=== PATIENT | female | born 1955 | race Caucasian/White ===

== ENCOUNTER → 2020-07-28 10:11 | Outpatient (CLI) | payer MEDICARE, SELFPAY ==
--- NOTE | 2020-07-28 10:19 | XR_ITS ---
PROCEDURE: XR DEXA AXIAL SKELETON CLINICAL HISTORY: ASYMPTOMATIC MENOPAUSE COMPARISON: No exams were available for comparison FINDINGS: The right hip BMD is 0.633 with a T-score of -1.9. The left hip BMD is 0.574 with a T-score of -2.5. The lumbar spine BMD is 0.984 with a T-score of -0.6. IMPRESSION: This patient is considered osteoporotic according to the World Health Organization criteria. Fracture risk is high. Treatment is advised. Based on these results a follow-up exam is recommended in 1 year. Dictated by: Sudheer Gonsalez MD 07/28/2020 20:08 Sudheer Gonsalez MD in [place] 07/28/2020 20:08
--- NOTE | 2020-07-28 11:00 | MM_ITS ---
PROCEDURE: MM DIG SCREENING MAMM BI W/CAD Digital Breast Tomosynthesis Included CLINICAL INDICATION: ASYMPTOMATIC MENOPAUSE There is no personal or family history of breast cancer. COMPARISON: MG Mammo Screen Digi Bilat from 02/28/2013 MG Mammo Screen Digi Bilat from 01/20/2016 TECHNIQUE: Standard CC and MLO images and 3D Tomosynthesis was obtained. R2 CAD reviewed. FINDINGS: The fibroglandular densities are seen in the central portions of both breast. There is a mole marker on each breast. There is a well-defined nodular lesion just deep to the nipple right breast best seen on the cc projection with benign features. However it was not definitely seen on the previous mammograms. Recommend the patient return for spot compression views and ultrasound for additional evaluation. IMPRESSION: Moderate breast density with asymmetric density right breast BI-RAD Category: 0 Need Additional Imaging Evaluation FOLLOW-UP: IMM Immediate Follow-up Recommended (A letter has been sent to the patient regarding results of the study.) Dictated by: Dr. Chad Dos Santos MD 08/12/2020 12:05 Dr. Chad Dos Santos MD in [place] 08/12/2020 12:05
== END ==
PROVIDERS: PCP Internal Medicine Adolescent Medicine; Visit Provider Internal Medicine Adolescent Medicine
DX: Z12.31 Encounter for screening mammogram for malignant neoplasm of breast (principal); Z13.820 Encounter for screening for osteoporosis; Z78.0 Asymptomatic menopausal state
CPT/HCPCS: 77063; 77067; 77080

== ENCOUNTER → 2020-08-23 14:50 | Outpatient (CLI) | payer MEDICARE, SELFPAY ==
--- NOTE | 2020-08-23 14:53 | MM_ITS ---
PROCEDURE: MM DIG MAMM DX UNILAT RT CAD Digital Breast Tomosynthesis Included CLINICAL INDICATION: ABN MAMM COMPARISON: MG Mammo Screen Digi Bilat from 02/28/2013 MG Mammo Screen Digi Bilat from 01/20/2016 MG MM DIG SCREENING MAMM BI W/CAD from 07/28/2020 US US BREAST RT COMPLETE from 08/23/2020 TECHNIQUE: Standard CC and MLO images and 3D Tomosynthesis was obtained. R2 CAD reviewed. FINDINGS: Noted is a mole marker near the nipple. The previously noted nodular lesion just deep and medial nipple again seen as smooth well-defined borders. Ultrasound performed the same date shows a small well-defined hypoechoic lesion with homogeneous echogenicity at this location measuring point 8 x 0.2 by 0.6 cm and the appearance suggests a small fibroadenoma. No other abnormality is noted. IMPRESSION: Problem solving views and ultrasound suggesting a small fibroadenoma corresponding to the nodular lesion seen near the nipple BI-RAD Category: 2 Benign Finding(s) FOLLOW-UP: 1YR 1 Year Follow-up (A letter has been sent to the patient regarding results of the study.) Dictated by: Dr. Chad Dos Santos MD 09/07/2020 10:10 Dr. Chad Dos Santos MD in [place] 09/07/2020 10:10
--- NOTE | 2020-08-23 14:54 | US_ITS ---
PROCEDURE: US BREAST RT COMPLETE CLINICAL INDICATION: ABN MAMM COMPARISON: No exams were available for comparison FINDINGS: There is a well-defined hypoechoic oval nodule with homogeneous internal echoes near the nipple measuring 0.8 x 0.2 by 0.6 cm and the appearance suggests a fibroadenoma. The surrounding breast parenchyma is unremarkable. There are couple normal appearing nodes in the axilla. IMPRESSION: Benign-appearing hypoechoic lesion likely fibroadenoma corresponding to the density on the recent mammogram and recommend continued yearly mammography Dictated by: Dr. Chad Dos Santos MD 09/07/2020 10:14 Dr. Chad Dos Santos MD in [place] 09/07/2020 10:14
== END ==
PROVIDERS: PCP Internal Medicine Adolescent Medicine; Visit Provider Internal Medicine Adolescent Medicine
DX: R92.8 Other abnormal and inconclusive findings on diagnostic imaging of breast (principal)
CPT/HCPCS: 76641; 77061; 77065; G0279

== ENCOUNTER → 2020-10-19 14:52 | Outpatient (POV) | payer MEDICARE, SELFPAY | PROVIDERS: Visit Provider Dermatology | DX: Z00.00 Encounter for general adult medical examination without abnormal findings (principal) ==

== ENCOUNTER → 2020-12-01 14:01 | Outpatient (CLI) | payer MEDICARE, SELFPAY ==
[2020-12-01 14:27] LABS: Basophils % 0.6 % (0.1-2.0); Eosinophils # 0.1 K/mm3 (0.0-0.4); Eosinophils % 2.5 % (0.1-12.0); Hematocrit 34.6 % (37.0-47.0); Lymphocytes # 1.9 K/mm3 (0.7-4.5); Lymphocytes % 32.8 % (10-50); Mean Corpuscular HGB Conc 34.6 g/dL (31.8-35.4); Mean Corpuscular Hemoglobin 33.5 pg (27.0-31.2); Mean Corpuscular Volume 96.9 fl (81-99); Mean Platelet Volume 7.8 fl (7.4-10.4); Monocytes # 0.3 K/mm3 (0.1-1.0); Monocytes % 5.6 % (1.7-9.3); Neutrophils # 3.4 K/mm3 (1.8-7.8); Neutrophils % 58.6 % (37.0-80.0); Platelet Count 251 K/mm3 (142-424); Red Blood Count 3.57 M/mm3 (4.20-5.40); Red Cell Distribution Width 13.5 % (11.5-17.5); White Blood Count 5.8 K/mm3 (4.8-10.8)
[2020-12-01 14:49] LABS: Chloride 105 mmol/L (98-107)
[2020-12-01 14:50] LABS: Potassium 4.2 mmoL/L (3.5-5.1); Sodium 143 mmol/L (136-145)
[2020-12-01 14:52] LABS: Alanine Aminotransferase 15 U/L (12-78); Alkaline Phosphatase 66 U/L (38-126); Aspartate Amino Transferase 28 U/L (14-36); Bilirubin,Total 0.5 mg/dl (0.2-1.3); Blood Urea Nitrogen 14 mg/dl (7-17); Estimated Glomerular Filt Rate 84 ml/min (>60); GFR (African American) 101 ML/MIN (>60)
[2020-12-01 14:53] LABS: Albumin Level 4.7 g/dl (3.5-5.0); Anion Gap 13.2 mEq/L (5-15); Calcium 8.9 mg/dl (8.4-10.2); Carbon Dioxide 29 mmol/L (22.0-30.0); Globulin 2.4 g/dL (1.3-3.2); Glucose 101 mg/dl (74-100); Total Protein,Serum 7.1 g/dl (6.3-8.2)
== END ==
PROVIDERS: Visit Provider Dermatology
DX: L40.0 Psoriasis vulgaris (principal); Z79.899 Other long term (current) drug therapy
CPT/HCPCS: 36415; 80053; 85025

== ENCOUNTER → 2020-12-07 11:07 | Outpatient (POV) | payer MEDICARE, SELFPAY | PROVIDERS: Visit Provider Dermatology | DX: Z00.00 Encounter for general adult medical examination without abnormal findings (principal) ==

== ENCOUNTER → 2021-01-31 15:55 | Outpatient (CLI) | payer MEDICARE, SELFPAY ==
[2021-01-31 17:28] LABS: Eosinophils # 0.1 K/mm3 (0.0-0.4); Eosinophils % 2.3 % (0.1-12.0); Hemoglobin 11.2 g/dL (12.2-16.2); Lymphocytes # 1.6 K/mm3 (0.7-4.5); Lymphocytes % 37.2 % (10-50); Mean Corpuscular HGB Conc 32.9 g/dL (31.8-35.4); Mean Corpuscular Hemoglobin 32.7 pg (27.0-31.2); Mean Corpuscular Volume 99.5 fl (81-99); Mean Platelet Volume 8.4 fl (7.4-10.4); Monocytes # 0.3 K/mm3 (0.1-1.0); Monocytes % 6.4 % (1.7-9.3); Neutrophils # 2.2 K/mm3 (1.8-7.8); Neutrophils % 53.1 % (37.0-80.0); Platelet Count 205 K/mm3 (142-424); Red Blood Count 3.42 M/mm3 (4.20-5.40); Red Cell Distribution Width 13.9 % (11.5-17.5); White Blood Count 4.2 K/mm3 (4.8-10.8)
[2021-01-31 19:19] LABS: Chloride 106 mmol/L (98-107)
[2021-01-31 19:20] LABS: Potassium 4.1 mmoL/L (3.5-5.1); Sodium 140 mmol/L (136-145)
[2021-01-31 19:22] LABS: Alanine Aminotransferase 13 U/L (12-78); Albumin Level 4.6 g/dl (3.5-5.0); Alkaline Phosphatase 68 U/L (38-126); Anion Gap 11.1 mEq/L (5-15); Aspartate Amino Transferase 28 U/L (14-36); Bilirubin,Total 0.5 mg/dl (0.2-1.3); Blood Urea Nitrogen 11 mg/dl (7-17); Carbon Dioxide 27 mmol/L (22.0-30.0); Estimated Glomerular Filt Rate 100 ml/min (>60); GFR (African American) 121 ML/MIN (>60); Globulin 2.3 g/dL (1.3-3.2); Glucose 90 mg/dl (74-100); Total Protein,Serum 6.9 g/dl (6.3-8.2)
== END ==
PROVIDERS: Visit Provider Dermatology
DX: L40.0 Psoriasis vulgaris (principal); Z79.899 Other long term (current) drug therapy
CPT/HCPCS: 36415; 80053; 85025

== ENCOUNTER → 2021-02-08 13:44 | Outpatient (POV) | payer MEDICARE, SELFPAY | PROVIDERS: Visit Provider Dermatology | DX: Z00.00 Encounter for general adult medical examination without abnormal findings (principal) ==

== ENCOUNTER → 2021-04-08 11:18 | Outpatient (CLI) | payer MEDICARE, SELFPAY ==
[2021-04-08 11:48] LABS: Basophils # 0.1 K/mm3 (0-0.2); Basophils % 0.8 % (0.1-2.0); Eosinophils # 0.1 K/mm3 (0.0-0.4); Eosinophils % 1.6 % (0.1-12.0); Hematocrit 38.4 % (37.0-47.0); Lymphocytes # 1.3 K/mm3 (0.7-4.5); Lymphocytes % 22.6 % (10-50); Mean Corpuscular HGB Conc 31.3 g/dL (31.8-35.4); Mean Corpuscular Hemoglobin 32.9 pg (27.0-31.2); Mean Corpuscular Volume 105.2 fl (81-99); Mean Platelet Volume 8.6 fl (7.4-10.4); Monocytes # 0.3 K/mm3 (0.1-1.0); Platelet Count 267 K/mm3 (142-424); Red Blood Count 3.65 M/mm3 (4.20-5.40); Red Cell Distribution Width 13.6 % (11.5-17.5); White Blood Count 5.7 K/mm3 (4.8-10.8)
[2021-04-08 12:22] LABS: Chloride 104 mmol/L (98-107); Potassium 4.6 mmoL/L (3.5-5.1); Sodium 141 mmol/L (136-145)
[2021-04-08 12:24] LABS: Blood Urea Nitrogen 10 mg/dl (7-17); Estimated Glomerular Filt Rate 100 ml/min (>60); GFR (African American) 121 ML/MIN (>60)
[2021-04-08 12:25] LABS: Alanine Aminotransferase 14 U/L (12-78); Albumin Level 4.3 g/dl (3.5-5.0); Albumin/Globulin Ratio 1.7 (1.1-1.8); Alkaline Phosphatase 69 U/L (38-126); Anion Gap 12.6 mEq/L (5-15); Aspartate Amino Transferase 27 U/L (14-36); Bilirubin,Total 0.5 mg/dl (0.2-1.3); Carbon Dioxide 29 mmol/L (22.0-30.0); Globulin 2.5 g/dL (1.3-3.2); Glucose 89 mg/dl (74-100); Total Protein,Serum 6.8 g/dl (6.3-8.2)
== END ==
PROVIDERS: Visit Provider Dermatology
DX: L40.0 Psoriasis vulgaris (principal); Z79.899 Other long term (current) drug therapy
CPT/HCPCS: 36415; 80053; 85025

== ENCOUNTER → 2021-05-10 13:20 | Outpatient (POV) | payer MEDICARE, SELFPAY | PROVIDERS: Visit Provider Dermatology | DX: Z00.00 Encounter for general adult medical examination without abnormal findings (principal) ==

== ENCOUNTER → 2021-09-27 12:35 | Outpatient (CLI) | payer MEDICARE, SELFPAY ==
[2021-09-27 14:01] LABS: Basophils # 0.1 K/mm3 (0-0.2); Basophils % 1.2 % (0.1-2.0); Eosinophils # 0.1 K/mm3 (0.0-0.4); Eosinophils % 1.6 % (0.1-12.0); Hematocrit 37.2 % (37.0-47.0); Hemoglobin 12.3 g/dL (12.2-16.2); Lymphocytes # 1.2 K/mm3 (0.7-4.5); Lymphocytes % 29.8 % (10-50); Mean Corpuscular Hemoglobin 33.8 pg (27.0-31.2); Mean Corpuscular Volume 102.3 fl (81-99); Mean Platelet Volume 8.4 fl (7.4-10.4); Monocytes # 0.2 K/mm3 (0.1-1.0); Monocytes % 4.9 % (1.7-9.3); Neutrophils # 2.5 K/mm3 (1.8-7.8); Neutrophils % 62.6 % (37.0-80.0); Platelet Count 222 K/mm3 (142-424); Red Blood Count 3.64 M/mm3 (4.20-5.40); Red Cell Distribution Width 13.8 % (11.5-17.5)
[2021-09-27 14:41] LABS: Chloride 106 mmol/L (98-107); Potassium 4.4 mmoL/L (3.5-5.1); Sodium 139 mmol/L (136-145)
[2021-09-27 14:43] LABS: Alanine Aminotransferase 19 U/L (12-78); Aspartate Amino Transferase 34 U/L (14-36); Blood Urea Nitrogen 15 mg/dl (7-17); Estimated Glomerular Filt Rate 83 ml/min (>60); GFR (African American) 101 ML/MIN (>60)
[2021-09-27 14:44] LABS: Albumin Level 4.3 g/dl (3.5-5.0); Albumin/Globulin Ratio 1.9 (1.1-1.8); Alkaline Phosphatase 66 U/L (38-126); Anion Gap 9.4 mEq/L (5-15); Bilirubin,Total 0.8 mg/dl (0.2-1.3); Calcium 8.6 mg/dl (8.4-10.2); Carbon Dioxide 28 mmol/L (22.0-30.0); Globulin 2.3 g/dL (1.3-3.2); Glucose 87 mg/dl (74-100); Total Protein,Serum 6.6 g/dl (6.3-8.2)
== END ==
PROVIDERS: PCP Internal Medicine Adolescent Medicine; Visit Provider Dermatology
DX: L40.0 Psoriasis vulgaris (principal); Z79.899 Other long term (current) drug therapy
CPT/HCPCS: 36415; 80053; 85025

== ENCOUNTER → 2021-10-18 13:34 | Outpatient (POV) | payer MEDICARE, SELFPAY | PROVIDERS: Visit Provider Dermatology | DX: Z00.00 Encounter for general adult medical examination without abnormal findings (principal) ==

== ENCOUNTER → 2021-10-19 08:27 | Outpatient (CLI) | payer MEDICARE, SELFPAY ==
--- NOTE | 2021-10-19 08:32 | XR_ITS ---
FINAL REPORT TECHNIQUE: Bone densitometry calculations of the lumbar spine and left hip were obtained. CLINICAL HISTORY: . post menopausal screening COMPARISON: July 28, 2020 FINDINGS: DEXA BONE DENSITY AXIAL SKELETON Using L1-4, the bone mineral density of the spine is 1.015 g/cm2 , corresponding to T-score of -0.3. Was previously 0.984 g/cm2 with a T-score of -0.6. These values may be falsely elevated secondary to hypertrophic change. Using the left hip, the bone mineral density of the femoral neck is 0.690 g/cm2, corresponding to a T-score of -2.1. Was previously 0.574 g/cm2 with a T-score of -2.5. Using the right hip, the bone mineral density of the femoral neck is 0.56 a g/cm2, corresponding to a T-score of -2.5. Was previously 0.633g/cm2 with a T-score of -1.9. NOTE: T-score: Standard deviation compared with peak bone mass of young adult mean. *Following the recommendations of the International Society of Bone Densitometry, classification of hip BMD is based on the lower of two T-scores; total hip or femoral neck. IMPRESSION: Osteoporosis: Lowest T-score is at or below -2.5. This patient's T-score meets the World Health Organization criteria for osteoporosis. Reviewed, Interpreted and Dictated by Fei Murray III, MD Transcribed by Mary Tobin Authenticated by Fei Murray III, MD on 10/19/2021 10:41:27 AM [facility]
--- NOTE | 2021-10-19 08:33 | MM_ITS ---
PROCEDURE INFORMATION: Exam: MG Bilateral Screening 3D Mammography Exam date and time: 10/19/2021 8:39 AM Age: 66 years old Clinical indication: Screening examination TECHNIQUE: Imaging protocol: Bilateral Screening tomosynthesis and 2D mammography including computer-aided detection (CAD) when performed. COMPARISON: 1. MG MM DIG MAMM DX UNILAT RT CAD 08/23/2020 2:56 PM 2. MG MM DIG SCREENING MAMM BI W/CAD 07/28/2020 10:49 AM 3. MG Mammo Screen Digi Bilat 01/20/2016 12:41 PM FINDINGS: MAMMOGRAPHY: Breast composition: There are scattered areas of fibroglandular density. Mass: No suspicious mass. Architectural distortion: None. Calcifications: No suspicious calcifications. Asymmetric density: None. Skin thickening: None. Axillary adenopathy: None. IMPRESSION: No mammographic evidence of malignancy. Annual screening is recommended unless otherwise clinically indicated. ASSESSMENT: BI-RADS Category 1: Negative
== END ==
PROVIDERS: PCP Internal Medicine Adolescent Medicine; Visit Provider Internal Medicine Adolescent Medicine
DX: Z12.31 Encounter for screening mammogram for malignant neoplasm of breast (principal); Z78.0 Asymptomatic menopausal state
CPT/HCPCS: 77063; 77067; 77080

== ENCOUNTER → 2022-05-02 13:08 | Outpatient (POV) | payer MEDICARE, SELFPAY | PROVIDERS: Visit Provider Dermatology | DX: Z00.00 Encounter for general adult medical examination without abnormal findings (principal) ==

== ENCOUNTER → 2022-11-14 14:13 | Outpatient (POV) | payer MEDICARE, SELFPAY | PROVIDERS: Visit Provider Dermatology | DX: Z00.00 Encounter for general adult medical examination without abnormal findings (principal) ==

== ENCOUNTER → 2023-02-01 08:03 | Outpatient (CLI) | payer MEDICARE, SELFPAY ==
--- NOTE | 2023-02-01 08:07 | MM_ITS ---
PROCEDURE INFORMATION: Exam: MG Bilateral Screening 3D Mammography Exam date and time: 02/01/2023 8:09 AM Age: 67 years old Clinical indication: Screening examination; No personal or family history of breast cancer TECHNIQUE: Imaging protocol: Bilateral Screening tomosynthesis and 2D mammography including computer-aided detection (CAD) when performed. COMPARISON: 1. MG MM DIG SCREENING MAMM BI W/CAD 10/19/2021 8:39 AM 2. MG MM DIG MAMM DX UNILAT RT CAD 08/23/2020 2:56 PM FINDINGS: MAMMOGRAPHY: Breast composition: There are scattered areas of fibroglandular density. Mass: None. Architectural distortion: None. Calcifications: No suspicious calcifications. Asymmetric density: None. Skin thickening: None. Axillary adenopathy: None. IMPRESSION: No mammographic evidence of malignancy. Annual screening is recommended unless otherwise clinically indicated. ASSESSMENT: BI-RADS Category 1: Negative
--- NOTE | 2023-02-01 08:52 | XR_ITS ---
FINAL REPORT CLINICAL HISTORY: VIT D DEFICIENCY,POST MENOPAUSAL COMPARISON: 10/19/2021 FINDINGS: Using L1-4, the bone mineral density of the spine is 1.058 g/cm2, corresponding to T-score of 0.1, within the normal range. Previously 1.015 g/cm? with a T score of -0.3. Using the left hip, the bone mineral density of the femoral neck is 0.633 g/cm2, corresponding to a T-score of -1.9, consistent with low bone density. Previously 0.658 g/cm? with a T score of -1.8. Using the right hip, the bone mineral density of the femoral neck is 0.627 g/cm2, corresponding to a T-score of -2.0, consistent with low bone density. Previously 0.568 g/cm? with a T score of -2.5. FRAX not reported because the patient is being treated for osteoporosis. NOTE: T-score: Standard deviation compared with peak bone mass of young adult mean. *Following the recommendations of the International Society of Bone densitometry, classification of hip BMD is based on the lower of two T-scores; total hip or femoral neck. IMPRESSION: Diminished bone mineral density consistent with low bone density. Reviewed, Interpreted and Dictated by Fei Murray III, MD Transcribed by Mitali Khan Authenticated and [facility]
== END ==
PROVIDERS: PCP Internal Medicine Adolescent Medicine; Visit Provider Internal Medicine Adolescent Medicine
DX: Z12.31 Encounter for screening mammogram for malignant neoplasm of breast (principal); Z78.0 Asymptomatic menopausal state
CPT/HCPCS: 77063; 77067; 77080

== ENCOUNTER 2023-12-18 11:15 | Outpatient (CLI) | payer MEDICARE, SELFPAY ==
[2023-12-18 11:30] VITALS: BP 130/58; PULSE 56; RESP 16; TEMP 36.5; O2SAT 99
[2023-12-18] MEDS: DENOSUMAB 60 MG/ML SYRINGE SQ (11:30)
[2023-12-18 11:55] VITALS: BP 128/64; PULSE 58; RESP 16; TEMP 36.5; O2SAT 99
== END 2023-12-18 11:55 | disposition home or self-care (01) ==
LOC: INF 11:17
PROVIDERS: PCP Internal Medicine Adolescent Medicine; Visit Provider Internal Medicine Adolescent Medicine
DX: M81.0 Age-related osteoporosis without current pathological fracture (principal); Z79.620 Long term (current) use of immunosuppressive biologic
CPT/HCPCS: 96372; J0897

== ENCOUNTER 2024-03-31 16:12 | Outpatient (CLI) | payer MEDICARE, SELFPAY ==
--- NOTE | 2024-03-31 16:19 | XR_ITS ---
PROCEDURE INFORMATION: Exam: XR Left Hip Exam date and time: 03/31/2024 4:20 PM Age: 68 years old Clinical indication: Hip pain; Left hip; Additional info: Left hip ain TECHNIQUE: Imaging protocol: Radiologic exam of the left hip. Views: 2 or 3 views hip with pelvis when performed. COMPARISON: No relevant prior studies available. FINDINGS: Bones/joints: There is mild osteoarthritis of the hips with joint space narrowing, productive changes, and subchondral sclerosis. There are partially visualized degenerative changes of the sacroiliac joints and lumbar spine as well as some degenerative disease of the pubic symphysis. The osseous structures are intact, with no signs of acute fracture, dislocation, or malalignment. Age-related degenerative changes are observed. There is no evidence of abnormal bone density or destructive lesions. Soft tissues: The soft tissues appear within normal limits. Vasculature: Multiple pelvic phleboliths are present. IMPRESSION: At the time of imaging, the study shows no acute osseous abnormalities but does reveal signs of age-related degenerative changes.
== END 2024-03-31 23:59 | disposition home or self-care (01) ==
LOC: RAD 16:15
PROVIDERS: PCP Internal Medicine Adolescent Medicine; Visit Provider Internal Medicine Adolescent Medicine
DX: M25.552 Pain in left hip (principal)
CPT/HCPCS: 73502

== ENCOUNTER 2024-05-01 11:00 | Outpatient (RCR) | payer MEDICARE, SELFPAY ==
--- NOTE | 2024-04-24 14:06 | HMH.PTOPEV ---
PT Outpatient Evaluation Rehab PT Outpatient Evaluation Start: 04/24/24 12:59 Freq: Status: Active Protocol: Document 04/24/24 12:59 [email or web address] (Rec: 04/24/24 14:06 [email or web address] [id number]) E-signed By Prasad Norton, PT Outpatient Therapy Subjective History Subjective History Pt. expresses financial concern over Physical Therapy co-pay each visit this date. Pt. is a 68 year old Female who presents to [facility] Outpatient Physical Therapy Services in [place] for the initial evaluation this date(04/24/24) w/ c/o sub-acute and constant L-sided lumbar and LLE hip P! , TTP, and burning of insidious onset that has progressively worsened the last couple months. Pt. reports R-sided lumbar P! has been going on for years. Pt. denies trauma nor injury as onset to current L-sided symptom complaint. Recent diagnostic imaging indicates degeneration and advancing arthritis per pt. report. Pt. denies having any injections for current complaint. Pt. vocalizes having some symptom relief w/ lidocaine patches and rubs. Pt. reports symptoms worsen w/ prolonged sitting and laying on her L side. Pt. 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 Pt. denies numbness/ tingling into the LLE grossly, denies saddle paresthesia, denies bowel/bladder dysfunction at this time. Pt. reports RTMD if no symptom relief w/ Physical Therapy. Current medications include Propranolol, Biotin, Folic Acid, and Prolia. PMH includes section, S/P RUE CTS , and RUE hand tremor. New diagnosis of cancer in past 12 No months? Chief Complaint Pain,Stiff,Paresthesia Symptom Type Ache,Sharp,Dull,Burning, Shooting Symptoms Relieved By Rest/Positioning,Ice Symptoms Aggravated By Sitting,Bending/Stooping, Physical Activity,Twisting, Lifting Prior Functional Limitations None Current Functional Limitations Reaching,Lifting,Housework, Sleeping,Sitting,Recreation Activity,Bending/Stooping Symptom Description Constant but Variable,Activity Dependent Level of pain today (0-10) 3 Pain scale - at its best (0-10) 1 Pain scale - at its worst (0-10) 6 Lumbopelvic Eval Posture Thoracic Spine Posture Standing Position Neutral Lumbar Spine Posture Standing Position Neutral Assistive device Assistive Devices None / NA Gait Observation General Gait Pattern Observation No Deviations/Normal Palapation tenderness left lumbar spinal tenderness Yes: L3-S1 buttock tenderness Yes: L-sided piriformis mm., greater trochanter Lumbar/Sacral Palpation Findings Tenderness Lumbar/Sacral Palpation Overall Comment grade 4 +TTP to TTP assessment above Accessory Movement L-spine Vertebrae Accessory Movements Central P/A [place],Left P/A that Elicit Symptoms [place] L3 left L4 left L5 left S1 left Range of Motion Lumbar Spine Active Flexion Range of 67 Motion (degrees) Lumbar Spine Active Extension Range of 7 Motion (degrees) Left Lumbar Spine Lateral Flexion Active 9 Range of Motion (degrees) Right Lumbar Spine Lateral Flexion 13 Active Range of Motion (degrees) Lumbar Spine ROM Limitations Soft Tissue Tightness,Pain Manual Muscle Test Left Knee Extension Strength Grade 4 Good Knee Flexion Strength Grade 4- Good- Hip Flexion Strength Grade 4- Good- Hip Abduction Strength Grade 4 Good Hip Adduction Strength Grade 4 Good Hip External Rotation Strength Grade 4- Good- Hip Internal Rotation Strength Grade 4- Good- Hip Extension Strength Grade 4 Good Gluteus Benny Strength Grade 4 Good Extensor Hallucis Longus Strength Grade 5 Normal Ankle Dorsiflexion Strength Grade 5 Normal Gastronemius/Soleus Strength Grade 5 Normal DTR Rt Patellar 2+ Lt Patellar 2+ Rt Gastroc/Soleus 0 Lt Gastroc/Soleus 0 Altered Sensation Bilateral LE Dermatome Level L1,L2,L3,L4,L5,S1 Comment light touch sensation vocalized symmetrical grossly Special Tests Lumbar Spine Screen Positive Hip Antoine Test Positive Left Hip Piriformis Test Positive Left Sciatic Nerve Tension Test Positive Left Andrea Test Negative Lumbar Long [place] Distraction Test/Manual Positive Traction Outpatient Therapy Assessment Impairments Problems/Impairmments Palpation Tenderness,Impaired Range of Motion,Impaired Strength,Impaired Sitting, Impaired Lifting,Impaired Household Care,Impaired Bending,Impaired Recreational Activities,Impaired Work Activities,Subjective C/O Pain ,Impaired Self Care/Self Management Prognosis Rehab Potential Good Comment w/ HEP compliancy Clinical Impression Consistent with Diagnosis Yes Consistent with B/L(L>R) SI jt. 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 will be able to lay on her L side and sleep through the night w/o diffi Patient to be Ind w/ Advanced HEP Yes Outpatient Therapy Plan of Care Treatment Plan May Include Therapeutic Exercise Including Home Yes Exercise Program Manual Therapy Techniques Yes Neuromuscular Re-education Yes Therapeutic Activities to Return to Yes Previous Functional/Work Level ADL/Self Care Education Yes Thermal Modalities Yes Electrical Stimulation Yes Ultrasound/Phonophoresis Yes Iontophoresis Yes Vasopneumatic Compression Pump Yes Massage Yes Eval/Re-Eval Yes Frequency Times per week 2 Duration Number of Weeks 4-6 Addendums This patient is a candidate for social No or vocational rehab? Patient/Guardian verbally acknowledges Yes understanding of treatment program and consents to further treatment? Patient/Guardian verbally acknowledges Yes understanding of diagnosis, prognosis and goals for treatment? Eval Complexity PT Charges 73880 - Low Complexity Shoulder/Elbow Eval Shoulder Objective Measurements Elbow Objective Measurements PHYSICIAN CERTIFICATION: I certify the specified therapy services for Shraddha Jurado are required, authorized, and reviewed every 30 days.
== END 2024-06-03 14:36 | disposition hospice, home (50) ==
LOC: PT 11:00
PROVIDERS: PCP Internal Medicine Adolescent Medicine; Visit Provider Physician Assistant
DX: M46.1 Sacroiliitis, not elsewhere classified (principal)
CPT/HCPCS: 97014; 97035; 97110; 97163; G0283

== ENCOUNTER 2024-07-14 14:08 | Outpatient (CLI) | payer MEDICARE, SELFPAY ==
[2024-07-14] MEDS: DENOSUMAB 60 MG/ML SYRINGE SUBCUT (14:42)
[2024-07-14 14:45] VITALS: BP 133/64; PULSE 73; RESP 18; O2SAT 100
== END 2024-07-14 14:45 | disposition home or self-care (01) ==
LOC: INF 14:09
PROVIDERS: PCP Internal Medicine Adolescent Medicine; Visit Provider Internal Medicine Adolescent Medicine
DX: M16.11 Unilateral primary osteoarthritis, right hip (principal)
CPT/HCPCS: 96372; J0897

== ENCOUNTER 2024-08-20 13:22 | Outpatient (CLI) | payer MEDICARE, SELFPAY ==
--- NOTE | 2024-08-20 13:25 | MM_ITS ---
PROCEDURE INFORMATION: Exam: MG Bilateral Screening 3D Mammography Exam date and time: 08/20/2024 1:32 PM Age: 69 years old Clinical indication: Screening. No family history of breast cancer. TECHNIQUE: Imaging protocol: Bilateral Screening tomosynthesis and 2D mammography including computer-aided detection (CAD) when performed. COMPARISON: 1. MG MM DIG SCREENING MAMM BI W/CAD 02/01/2023 8:09 AM 2. MG MM DIG SCREENING MAMM BI W/CAD 10/19/2021 8:39 AM 3. MG MM DIG MAMM DX UNILAT RT CAD 08/23/2020 2:56 PM 4. MG MM DIG SCREENING MAMM BI W/CAD 07/28/2020 10:49 AM FINDINGS: MAMMOGRAPHY: Breast composition: There are scattered areas of fibroglandular density. Mass: No suspicious mass. Architectural distortion: None. Calcifications: No suspicious calcifications. Asymmetric density: None. Skin thickening: None. Axillary adenopathy: None. IMPRESSION: No mammographic evidence of malignancy. Annual screening is recommended unless otherwise clinically indicated. ASSESSMENT: BI-RADS Category 1: Negative.
== END 2024-08-20 23:59 | disposition home or self-care (01) ==
LOC: RAD 13:22
PROVIDERS: PCP Internal Medicine Adolescent Medicine; Visit Provider Internal Medicine Adolescent Medicine
DX: Z12.31 Encounter for screening mammogram for malignant neoplasm of breast (principal)
CPT/HCPCS: 77063; 77067